=== PATIENT | female | born 1995 | race Caucasian/White ===

== ENCOUNTER 2021-02-14 14:59 | Outpatient (REF) | payer OTHER, SELFPAY ==
[2021-02-14 16:54] LABS: Binax Internal Control QC Valid; Binax Lot number: 9864; Binax Now Covid-19 Ag Negative (Negative)
== END 2021-02-14 15:00 | disposition home or self-care (01) ==
LOC: HO.LAB 14:59
PROVIDERS: Visit Provider Internal Medicine
DX: Z20.822 Contact with and (suspected) exposure to COVID-19 (principal)
CPT/HCPCS: 36415; C9803

== ENCOUNTER 2021-12-04 03:26 | Inpatient (IN) | payer OTHER, SELFPAY ==
--- NOTE | 2021-12-04 | ECG_ITS ---
Test Reason : clearance Blood Pressure : / mmHG Vent. Rate : 086 BPM Atrial Rate : 086 BPM P-R Int : 142 ms QRS Dur : 082 ms QT Int : 346 ms P-R-T Axes : 020 050 041 degrees QTc Int : 414 ms Normal sinus rhythm Normal ECG No previous ECGs available Referred By: Javon Vicente Electronically Signed By:GALINA SALEEM MD
[2021-12-04 03:42] VITALS: BP 140/102; PULSE 102; RESP 18; TEMP 36.3; O2SAT 98; BMI 22.8
[2021-12-04 04:14] LABS: MANUAL DIFF FLAG NO
[2021-12-04 04:15] LABS: Basophils Absolute Auto 0.1 X10*3/uL (0.0-0.2); Basophils Percent Auto 1.2 % (0-2); Eosinophils Absolute Auto 0.1 X10*3/uL (0.0-0.4); Eosinophils Percent Auto 1.1 % (0-4); Hematocrit 38.7 % (37.0-47.0); Hemoglobin 13.2 g/dl (12.0-16.0); Imm Gran Abs Auto 0.01 X10*3/uL (0.00-0.03); Imm Gran Pct Auto 0.2 % (0.0-0.4); Lymphocytes Absolute Auto 3.7 X10*3/uL (1.2-4.9); Lymphocytes Percent Auto 57.5 % (20-40); Mean Corpuscular HGB Conc 34.1 g/dl (31.0-35.0); Mean Corpuscular Hemoglobin 33.2 pg (27.0-33.0); Mean Corpuscular Volume 97.2 fL (80.0-98.0); Mean Platelet Volume 8.8 fL (9.4-12.3); Monocytes Absolute Auto 0.5 X10*3/uL (0.1-1.2); Monocytes Percent Auto 7.8 % (2-11); Neutrophils Absolute Auto 2.1 x10*3/uL (2.0-8.3); Neutrophils Percent Auto 32.2 % (45-73); Platelet Count 336 X10*3/uL (160-400); Red Blood Count 3.98 X10*6/uL (4.20-5.50); Red Cell Distribution Width 12.2 % (11.0-16.0); White Blood Count 6.5 X10*3/uL (4.8-10.8)
[2021-12-04 04:17] LABS: Appearance Urine Clear; Color Urine Yellow; Glucose Urine UA Negative (Negative); Leukocyte Esterase Urine Negative (Negative); Nitrite Urine Negative (Negative); PH 5.5 (5.0-9.0); Specific Gravity - Urine 1.015 (1.005-1.025); UMIC TRIGGER UA YES; Urine Blood Small (1+) (Negative); Urine Ketones Negative (Negative); Urine Protein Negative (Neg-Trace)
[2021-12-04 04:18] LABS: UPreg QC Valid YES; Urine Pregnancy NEGATIVE (NEGATIVE)
[2021-12-04 04:28] LABS: Bacteria Urine 1+ (None Seen); Hyaline Casts Urine 0-2 /LPF (0-2); RBC Urine 0-2 /HPF (0-2); WBC Urine 0-5 /HPF (0-5)
[2021-12-04 04:33] LABS: Acetaminophen LAB < 1 mcg/mL (<30); Ethanol 342 mg/dL; Salicylate < 5.0 mg/dL (15-30)
[2021-12-04 04:34] LABS: Amphetamine Screen Urine POSITIVE (Not Detect); Barbiturates, Urine Not Detected (Not Detect); Benzodiazepines Screen Urine Not Detected (Not Detect); Cannabinoid Screen Urine Not Detected (Not Detect); Cocaine Screen Urine Not Detected (Not Detect); Fentanyl, urine Not Detected (Not Detect); Opiate Screen Urine Not Detected (Not Detect); Phencyclidine Screen Urine Not Detected (Not Detect)
[2021-12-04 04:36] LABS: COVID-19 Test Negative (Negative)
[2021-12-04 04:40] LABS: Alanine Aminotransferase 67 U/L (0-31); Albumin Level 4.8 g/dL (3.5-5.0); Alkaline Phosphatase 86 U/L (39-117); Anion Gap 20 (12-20); Aspartate Amino Transferase 90 U/L (5-31); Bilirubin Total 0.3 mg/dL (0.0-1.0); Blood Urea Nitrogen 14 mg/dL (9-16); Calcium 9.3 mg/dL (8.4-10.2); Carbon Dioxide 22 mmol/L (22-29); Chloride 105 mmol/L (96-108); Creatinine Clr Calc Pharmacy 94.1; Estimated Glomerular Filt Rate > 60; Glucose Random 104 mg/dL (60-115); Sodium 143 mmol/L (135-145); Total Protein 8.6 g/dL (6.5-8.0)
--- NOTE | 2021-12-04 04:41 | ED.PSYCH ---
HPI - Psych General Chief Complaint: Psychiatric Symptoms Stated Complaint: SI/Seeking detox Time Seen by Provider: 12/04/21 03:48 Source: patient Mode of arrival: ambulatory Limitations: no limitations History of Present Illness HPI Narrative: Patient history of alcohol abuse and depression came to the ER for worsening of depression coping with ETOH having persistent suicidal ideation without any plan patient drinks daily and come from alcoholic family never been to detox Related Data Home Medications Medication Instructions Recorded Confirmed dextroamphetamine-amphetamine ER 1 cap PO QAM attention deficit 12/04/21 12/04/21 30 mg 24hr capsule,extend release hyperactivity disorder norgestimate-ethinyl estradiol 1 tab PO DAILY 12/04/21 12/04/21 0.18 mg/0.215mg/0.25mg-35 mcg(28)tablet (Tri-Sprintec (28)) trazodone 50 mg tablet 1 tab PO BEDTIME 12/04/21 12/04/21 Allergies Allergy/AdvReac Type Severity Reaction Status Date / Time amoxicillin [AMOXICILLIN] Allergy Unknown HIVES Unverified 11/03/19 19:49 Review of Systems Review of Systems: Yes all other systems are reviewed and are negative [facility] Social History Social History Advance Directives: No Advance Directives Information Provided: Yes Physical Exam Vital Signs: Vital Signs: Last Vital Signs Temp 97.4 F 12/04/21 03:42 Pulse 102 H 12/04/21 03:42 Resp 18 12/04/21 03:42 BP 140/102 H 12/04/21 03:42 Pulse Ox 98 12/04/21 03:42 O2 Del Method 12/04/21 03:42 BMI result Body Mass Index 22.8 Appearance: Alert. Oriented X3. No acute distress. etoh+ Eyes: PERRLA, No Nystagmus ENT: Pharynx normal. Oral Mucosa moist Neck: Normal inspection. Neck supple. CVS: Normal heart rate and rhythm. Pulses normal. Respiratory: No respiratory distress. Equal air entry bilateral, no wheezing/rales/rhonchi Abdomen: Soft and nontender. Bowel sounds are present, no mass palpable, no CVA tenderness Skin: Skin warm and dry. Normal skin color. Normal skin turgor. Extremities: No lower extremity edema. No calf tenderness Psych: Intoxicated vague suicidal feeling no auditory or visual hallucination Neuro: Oriented X 3. No motor deficit. No sensory deficit.No cerebellar signs , cranial nerves II-XII intact MDM - Psych Lab Data Result diagrams: 12/04/21 04:08 12/04/21 04:08 Labs: Lab Results 12/04/21 12/04/21 12/04/21 Range/Units 03:53 03:54 03:54 WBC (4.8-10.8) X10*3/uL RBC (4.20-5.50) X10*6/uL Hgb (12.0-16.0) g/dl Hct (37.0-47.0) % MCV (80.0-98.0) fL MCH (27.0-33.0) pg MCHC (31.0-35.0) g/dl RDW (11.0-16.0) % Plt Count (160-400) X10*3/uL MPV (9.4-12.3) fL Immature Gran % (Auto) (0.0-0.4) % Neut % (Auto) (45-73) % Lymph % (Auto) (20-40) % [place] % (Auto) (2-11) % Eos % (Auto) (0-4) % Baso % (Auto) (0-2) % Lymph # (Auto) (1.2-4.9) X10*3/uL [place] # (Auto) (0.1-1.2) X10*3/uL Eos # (Auto) (0.0-0.4) X10*3/uL Baso # (Auto) (0.0-0.2) X10*3/uL Abs Immat Gran (auto) (0.00-0.03) X10*3/uL Absolute Neuts (auto) (2.0-8.3) x10*3/uL Absolute Nucleated RBC (0.0-0.012) X10*3/uL Nucleated RBC % (auto) (0.0-0.2) /100WBC Sodium (135-145) mmol/L Potassium (3.3-5.1) mmol/L Chloride (96-108) mmol/L Carbon Dioxide (22-29) mmol/L Anion Gap (12-20) BUN (9-16) mg/dL Creatinine (0.5-1.4) mg/dL Estim Creat Clear Calc Estimated GFR Random Glucose (60-115) mg/dL Calcium (8.4-10.2) mg/dL Magnesium (1.6-2.6) mg/dL Total Bilirubin (0.0-1.0) mg/dL AST (5-31) U/L ALT (0-31) U/L Alkaline Phosphatase (39-117) U/L Total Protein (6.5-8.0) g/dL Albumin (3.5-5.0) g/dL Urine Color Urine Appearance Urine pH (5.0-9.0) Ur Specific Cecilia (1.005-1.025) Urine Protein (Neg-Trace) mg/dL Urine Glucose (UA) (Negative) mg/dL Urine Ketones (Negative) mg/dL Urine Blood (Negative) Urine Nitrite (Negative) Ur Leukocyte Esterase (Negative) Urine RBC (0-2) /HPF Urine WBC (0-5) /HPF Ur Squamous Epith Cells (0-2) /HPF Urine Bacteria (None Seen) Hyaline Casts (0-2) /LPF Urine Test NEGATIVE (NEGATIVE) Salicylates (15-30) mg/dL Urine Opiates Screen Not Detected (Not Detect) Urine Fentanyl Screen Not Detected (Not Detect) Acetaminophen (<30) mcg/mL Ur Barbiturates Screen Not Detected (Not Detect) Ur Phencyclidine Scrn Not Detected (Not Detect) Ur Amphetamines Screen POSITIVE H (Not Detect) U Benzodiazepines Scrn Not Detected (Not Detect) Urine Cocaine Screen Not Detected (Not Detect) U Marijuana (THC) Screen Not Detected (Not Detect) Ethyl Alcohol mg/dL COVID-19 (DANIEL) Negative (Negative) COVID-19 Clin Com See Note 12/04/21 12/04/21 12/04/21 Range/Units 03:55 04:07 04:08 WBC 6.5 (4.8-10.8) X10*3/uL RBC 3.98 L (4.20-5.50) X10*6/uL Hgb 13.2 (12.0-16.0) g/dl Hct 38.7 (37.0-47.0) % MCV 97.2 (80.0-98.0) fL MCH 33.2 H (27.0-33.0) pg MCHC 34.1 (31.0-35.0) g/dl RDW 12.2 (11.0-16.0) % Plt Count 336 (160-400) X10*3/uL MPV 8.8 L (9.4-12.3) fL Immature Gran % (Auto) 0.2 (0.0-0.4) % Neut % (Auto) 32.2 L (45-73) % Lymph % (Auto) 57.5 H (20-40) % [place] % (Auto) 7.8 (2-11) % Eos % (Auto) 1.1 (0-4) % Baso % (Auto) 1.2 (0-2) % Lymph # (Auto) 3.7 (1.2-4.9) X10*3/uL [place] # (Auto) 0.5 (0.1-1.2) X10*3/uL Eos # (Auto) 0.1 (0.0-0.4) X10*3/uL Baso # (Auto) 0.1 (0.0-0.2) X10*3/uL Abs Immat Gran (auto) 0.01 (0.00-0.03) X10*3/uL Absolute Neuts (auto) 2.1 (2.0-8.3) x10*3/uL Absolute Nucleated RBC 0.000 (0.0-0.012) X10*3/uL Nucleated RBC % (auto) 0.0 (0.0-0.2) /100WBC Sodium (135-145) mmol/L Potassium (3.3-5.1) mmol/L Chloride (96-108) mmol/L Carbon Dioxide (22-29) mmol/L Anion Gap (12-20) BUN (9-16) mg/dL Creatinine (0.5-1.4) mg/dL Estim Creat Clear Calc Estimated GFR Random Glucose (60-115) mg/dL Calcium (8.4-10.2) mg/dL Magnesium (1.6-2.6) mg/dL Total Bilirubin (0.0-1.0) mg/dL AST (5-31) U/L ALT (0-31) U/L Alkaline Phosphatase (39-117) U/L Total Protein (6.5-8.0) g/dL Albumin (3.5-5.0) g/dL Urine Color Yellow Urine Appearance Clear Urine pH 5.5 (5.0-9.0) Ur Specific Cecilia 1.015 (1.005-1.025) Urine Protein Negative (Neg-Trace) mg/dL Urine Glucose (UA) Negative (Negative) mg/dL Urine Ketones Negative (Negative) mg/dL Urine Blood Small (1+) H (Negative) Urine Nitrite Negative (Negative) Ur Leukocyte Esterase Negative (Negative) Urine RBC 0-2 (0-2) /HPF Urine WBC 0-5 (0-5) /HPF Ur Squamous Epith Cells 6-10 (0-2) /HPF Urine Bacteria 1+ (None Seen) Hyaline Casts 0-2 (0-2) /LPF Urine Test (NEGATIVE) Salicylates < 5.0 L (15-30) mg/dL Urine Opiates Screen (Not Detect) Urine Fentanyl Screen (Not Detect) Acetaminophen < 1 (<30) mcg/mL Ur Barbiturates Screen (Not Detect) Ur Phencyclidine Scrn (Not Detect) Ur Amphetamines Screen (Not Detect) U Benzodiazepines Scrn (Not Detect) Urine Cocaine Screen (Not Detect) U Marijuana (THC) Screen (Not Detect) Ethyl Alcohol 342 H* mg/dL COVID-19 (DANIEL) (Negative) COVID-19 Clin Com 12/04/21 Range/Units 04:08 WBC (4.8-10.8) X10*3/uL RBC (4.20-5.50) X10*6/uL Hgb (12.0-16.0) g/dl Hct (37.0-47.0) % MCV (80.0-98.0) fL MCH (27.0-33.0) pg MCHC (31.0-35.0) g/dl RDW (11.0-16.0) % Plt Count (160-400) X10*3/uL MPV (9.4-12.3) fL Immature Gran % (Auto) (0.0-0.4) % Neut % (Auto) (45-73) % Lymph % (Auto) (20-40) % [place] % (Auto) (2-11) % Eos % (Auto) (0-4) % Baso % (Auto) (0-2) % Lymph # (Auto) (1.2-4.9) X10*3/uL [place] # (Auto) (0.1-1.2) X10*3/uL Eos # (Auto) (0.0-0.4) X10*3/uL Baso # (Auto) (0.0-0.2) X10*3/uL Abs Immat Gran (auto) (0.00-0.03) X10*3/uL Absolute Neuts (auto) (2.0-8.3) x10*3/uL Absolute Nucleated RBC (0.0-0.012) X10*3/uL Nucleated RBC % (auto) (0.0-0.2) /100WBC Sodium 143 (135-145) mmol/L Potassium 4.0 (3.3-5.1) mmol/L Chloride 105 (96-108) mmol/L Carbon Dioxide 22 (22-29) mmol/L Anion Gap 20 (12-20) BUN 14 (9-16) mg/dL Creatinine 0.71 (0.5-1.4) mg/dL Estim Creat Clear Calc 94.1 Estimated GFR > 60 Random Glucose 104 (60-115) mg/dL Calcium 9.3 (8.4-10.2) mg/dL Magnesium 2.2 (1.6-2.6) mg/dL Total Bilirubin 0.3 (0.0-1.0) mg/dL AST 90 H (5-31) U/L ALT 67 H (0-31) U/L Alkaline Phosphatase 86 (39-117) U/L Total Protein 8.6 H (6.5-8.0) g/dL Albumin 4.8 (3.5-5.0) g/dL Urine Color Urine Appearance Urine pH (5.0-9.0) Ur Specific Cecilia (1.005-1.025) Urine Protein (Neg-Trace) mg/dL Urine Glucose (UA) (Negative) mg/dL Urine Ketones (Negative) mg/dL Urine Blood (Negative) Urine Nitrite (Negative) Ur Leukocyte Esterase (Negative) Urine RBC (0-2) /HPF Urine WBC (0-5) /HPF Ur Squamous Epith Cells (0-2) /HPF Urine Bacteria (None Seen) Hyaline Casts (0-2) /LPF Urine Test (NEGATIVE) Salicylates (15-30) mg/dL Urine Opiates Screen (Not Detect) Urine Fentanyl Screen (Not Detect) Acetaminophen (<30) mcg/mL Ur Barbiturates Screen (Not Detect) Ur Phencyclidine Scrn (Not Detect) Ur Amphetamines Screen (Not Detect) U Benzodiazepines Scrn (Not Detect) Urine Cocaine Screen (Not Detect) U Marijuana (THC) Screen (Not Detect) Ethyl Alcohol mg/dL COVID-19 (DANIEL) (Negative) COVID-19 Clin Com Discharge Plan Discharge Clinical Impression: Alcohol dependence, Suicidal ideation, Depression Patient Disposition: Still a Patient Prescriptions: No Action trazodone 50 mg tablet 1 tab PO BEDTIME norgestimate-ethinyl estradiol [Tri-Sprintec (28)] 0.18/0.215/0.25 mg-35 mcg (28) tablet 1 tab PO DAILY dextroamphetamine-amphetamine 30 mg capsule,extended release 24hr 1 cap PO QAM
--- NOTE | 2021-12-04 04:49 | PC.NURSE ---
Patient currently in bed appears sleeping, no distress observed/reported at this time, BAL at 0407 was 342, [facility] referral completed/confirmed/patient will be assessed by [facility] after 1400, med rec completed/pending provider's approval, behavior non concerning, will continue to monitor.
[2021-12-04 05:06] LABS: Magnesium 2.2 mg/dL (1.6-2.6)
[2021-12-04] MEDS: Thiamine HCL 100 MG TABLET PO (05:50)
[2021-12-04] MEDS: Folic Acid 1 MG TABLET PO (05:50)
--- NOTE | 2021-12-04 17:01 | MHC.RECOVSUP ---
? Reason for consult Recovery Support o Current location: [facility] o Identified substance use concern: Alcohol - Support ? Intervention: o Community resources provided o Harm reduction discussion ? Plan: o Referral to [facility] o Bed search in progress to o Patient awaiting crisis evaluation o Patient to follow up with [facility] after discharge ? Additional information:Met with Patient and we talked about harm reduction and recovery... Client stated that she may want to start MAT. Recovery resources was given to Patient..
[2021-12-04 17:13] VITALS: BP 153/101; PULSE 93; RESP 16; TEMP 36.3; O2SAT 98
--- NOTE | 2021-12-04 17:32 | MHC.CARE ---
CARE Team sent images of pt's license and her SSN # to Financial counseling.
[2021-12-04 20:36] VITALS: BP 142/92; PULSE 92; RESP 16; TEMP 36.3; O2SAT 97
[2021-12-04] MEDS: LORazepam 1 MG TABLET 2 MG PO (20:38)
--- NOTE | 2021-12-04 20:46 | PHA.MEDREC ---
Pharmacy Consult ? Medication Reconciliation RN has completed the medication reconciliation, pharmacy reviewed.
--- OUTSIDE RECORDS SUMMARY | 2021-12-04 22:12 | XMS_ITS | Continuity of Care Document ---
:1995 Author Organization [facility] Address [address] [place] [address]- Care Team Providers Name Role Phone Adenike APARICIO, Geri Collins Primary Care Physician Encounter [facility] Date(s): 08/31/19 - 09/30/19 [facility] [address] [place] [address]- [facility] Allergies, Adverse Reactions, Alerts Substance Reaction Severity Status amoxicillin Active Immunizations Given and Recorded Vaccine Date Status Refusal Reason influenza virus vaccine, inactivated1 03/09/19 Recorded influenza virus vaccine, inactivated2 02/10/13 Given influenza virus vaccine, inactivated 10/09/08 Recorded tetanus/diphtheria/pertussis, acel(Tdap) 02/21/17 Given Meningococcal Conjugate Vaccine 01/23/12 Recorded Meningococcal Conjugate Vaccine 06/17/07 Recorded influenza virus vaccine, live 01/23/12 Recorded influenza virus vaccine, live 10/10/09 Recorded Human Papillomavirus Vaccine 01/18/08 Recorded Human Papillomavirus Vaccine 08/19/07 Recorded Human Papillomavirus Vaccine 06/17/07 Recorded diphtheria/tetanus/pertussis, acel(DTaP) 11/10/05 Recorde d diphtheria/tetanus/pertussis, acel(DTaP) 07/30/98 Recorde d diphtheria/tetanus/pertussis, acel(DTaP) 10/22/95 Recorde d diphtheria/tetanus/pertussis, acel(DTaP) 04/14/95 Recorde d diphtheria/tetanus/pertussis, acel(DTaP) 06/12/94 Recorde d diphtheria/tetanus/pertussis, acel(DTaP) 04/15/94 Recorde d diphtheria/tetanus/pertussis, acel(DTaP)3 02/07/94 Record ed diphtheria/tetanus/pertussis, acel(DTaP) 02/07/94 Recorde d Measles/Mumps/Rubella Virus Vaccine 07/30/98 Recorded Measles/Mumps/Rubella Virus Vaccine 04/14/95 Recorded Polio Vaccine, Live (oldterm) 07/30/98 Recorded Polio Vaccine, Live (oldterm) 06/12/94 Recorded Polio Vaccine, Live (oldterm) 04/15/94 Recorded Polio Vaccine, Live (oldterm) 02/07/94 Recorded Haemophilus B Conjugate Vac (oldterm) 04/14/95 Recorded Haemophilus B Conjugate Vac (oldterm) 06/12/94 Recorded Haemophilus B Conjugate Vac (oldterm) 04/15/94 Recorded Haemophilus B Conjugate Vac (oldterm) 02/07/94 Recorded hepatitis B pediatric vaccine 09/10/94 Recorded hepatitis B pediatric vaccine 01/13/94 Given hepatitis B pediatric vaccine 93 Recorded 1Result Comment: given in [id number] Comment: [02/10/2013] Dr. [id number] Comment: [11/21/2013 Uncharted] put in error Medications Adderall XR 30 mg oral capsule, extended release 1 capsule = 30 mg, By Mouth, Daily in AM, 0 Refills, Maintenance Start Date: 02/10/13 Status: OrderedTri-Linyah 35 mcg oral tablet 1 tablet, By Mouth, Daily, # 84 tablet, 1 Refills, Soft Stop, 03/22/19 10:18:00 EST, [facility], 1 tablet By Mouth Daily,x84 days, 157.3, cm, 03/09/19 10:13:00 EST, Height Start Date: 03/22/19 Stop Date: 09/06/19 Status: Ordered Problem List Condition Effective Dates Status Health Status Informant ADD (attention deficit Active disorder)(Confirmed) History of varicella(Confirmed) Active Social History Social History Type Response Smoking Status Current every day smoker; To bacco user in household: Yes; Type: Cigarettes; Other: 1 pack per week; entered on: 09/11/17 Sex
--- OUTSIDE RECORDS SUMMARY | 2021-12-04 22:12 | XMS_ITS | Continuity of Care Document ---
:1995 Author Organization [facility] Address [address] [place] [address]- Care Team Providers Name Role Phone Adenike APARICIO, Geri Collins Primary Care Physician Encounter [facility] [place] Date(s): 04/30/20 - 05/07/20 [facility] [address] [place] [address]- Encounter Diagnosis Dysuria (Discharge Diagnosis) - 04/30/20 Attending Physician: Geri Jeong MD Allergies, Adverse Reactions, Alerts Substance Reaction Severity [...] vaccine 93 Recorded 1Result Comment: given in [id number] Comment: [02/10/2013] Dr. [id number] Comment: [11/21/2013 Uncharted] put in error Medications Adderall XR 30 mg oral capsule, extended release 1 capsule = 30 mg, By Mouth, Daily in AM, # 14 capsule, 0 Refills, Maintenance, 10/11/19 10:55:00 EDT, ER Capsule, [facility], 1 capsule By Mouth Daily in AM,x14 days, 157.3, cm, 03/09/19 10:13:00 EST, Height Start Date: 10/11/19 Stop Date: 10/25/19 Status: OrderedTri-Linyah 35 mcg oral tablet 1 tablet, By Mouth, Daily, # 84 tablet, 1 Refills, Soft Stop, 12/26/19 10:52:00 EST, [facility], 1 tablet By Mouth Daily,x84 days, 157.3, cm, 03/09/19 10:13:00 EST, Height Start Date: 12/26/19 Stop Date: 06/11/20 Status: Ordered Problem List Condition Effective Dates Status Health Status Informant ADD (attention deficit Active disorder)(Confirmed) History of varicella(Confirmed) Active Diagnosis Diagnosis Type Effective Dates Health Status Clinical Serv ice Informant Dysuria Discharge 04/30/20 Diagnosis Vital Signs Most recent to oldest [Reference Range]: 1 Height 157.3 cm (04/30/20 8:40 AM) Social History Social History Type Response Smoking Status Current every day smoker; To bacco user in household: Yes; Type: Cigarettes; Other: 1 pack per week; entered on: 09/11/17 Sex
--- OUTSIDE RECORDS SUMMARY | 2021-12-04 22:12 | XMS_ITS | Continuity of Care Document ---
:1995 Author Organization [facility] Address [address] [place] [address]- Care Team Providers Name Role Phone Adenike APARICIO, Geri Collins Primary Care Physician [phone] Encounter [facility] [place] Date(s): 05/15/20 - 06/14/20 [facility] [address] [place], [place] [address] Allergies, Adverse Reactions, Alerts Substance Reaction Severity [...] vaccine 93 Recorded 1Result Comment: given in [id number] Comment: [02/10/2013] Dr. [id number] Comment: [11/21/2013 Uncharted] put in error Medications Adderall XR 30 mg oral capsule, extended release 1 capsule = 30 mg, By Mouth, Daily in AM, # 14 capsule, 0 Refills, Maintenance, 10/11/19 10:55:00 EDT, ER Capsule, [facility], 1 capsule By Mouth Daily in AM,x14 days, 157.3, cm, 03/09/19 10:13:00 EST, Height Start Date: 10/11/19 Stop Date: 10/25/19 Status: OrderedTri-Linyah 35 mcg oral tablet 1 tablet, By Mouth, Daily, # 84 tablet, 1 Refills, Soft Stop, 05/29/20 11:27:00 EDT, [facility], 1 tablet By Mouth Daily,x84 days, 157.3, cm, 04/30/20 8:40:00 EDT, Height Start Date: 05/29/20 Stop Date: 11/13/20 Status: Ordered Problem List Condition Effective Dates Status Health Status Informant ADD (attention deficit Active disorder)(Confirmed) History of varicella(Confirmed) Active Social History Social History Type Response Smoking Status Current every day smoker; To bacco user in household: Yes; Type: Cigarettes; Other: 1 pack per week; entered on: 09/11/17 Sex
--- OUTSIDE RECORDS SUMMARY | 2021-12-04 22:12 | XMS_ITS | Continuity of Care Document ---
:1995 Author Organization [facility] Address [address] [place] [address]- Care Team Providers Name Role Phone Adenike APARICIO, Geri Collins Primary Care Physician Encounter [facility] [place] Date(s): 10/24/20 - 11/23/20 [facility] [address] [place], [place] [address] Allergies, Adverse Reactions, Alerts Substance Reaction Severity [...] vaccine 93 Recorded 1Result Comment: given in [id number] Comment: [02/10/2013] Dr. [id number] Comment: [11/21/2013 Uncharted] put in error Medications Adderall XR 30 mg oral capsule, extended release 1 capsule = 30 mg, By Mouth, Daily in AM, # 14 capsule, 0 Refills, Maintenance, 10/11/19 10:55:00 EDT, ER Capsule, [facility], 1 capsule By Mouth Daily in AM,x14 days, 157.3, cm, 03/09/19 10:13:00 EST, Height Start Date: 10/11/19 Stop Date: 10/25/19 Status: OrderedTri-Linyah 35 mcg oral tablet 1 tablet, By Mouth, Daily, for 84 days, # 84 tablet, 1 Refills, Hard Stop 04/11/21 22:26:00 EST, 10/25/20 22:26:00 EDT, [id number], 157.3, cm, 04/30/20 8:40:00 EDT, Height Start Date: 10/25/20 Stop Date: 04/11/21 Status: OrderedTri-Linyah 35 mcg oral tablet 1 tablet, By Mouth, Daily, # 28 tablet, 0 Refills, Soft Stop, 04/11/21 22:26:00 EST, [facility] #[id number], 1 tablet By Mouth Daily,x28 days, 157.3, cm, 04/30/20 8:40:00 EDT, Height Start Date: 04/11/21 Stop Date: 05/09/21 Status: Ordered Problem List Condition Effective Dates Status Health Status Informant ADD (attention deficit Active disorder)(Confirmed) History of varicella(Confirmed) Active Social History Social History Type Response Smoking Status Current every day smoker; To bacco user in household: Yes; Type: Cigarettes; Other: 1 pack per week; entered on: 09/11/17 Sex
--- OUTSIDE RECORDS SUMMARY | 2021-12-04 22:12 | XMS_ITS | Continuity of Care Document ---
:1995 Author Organization [facility] Address [address] [place] [address]- Care Team Providers Name Role Phone Adenike APARICIO, Geri Collins Primary Care Physician [place] [facility] [place]20 [facility] [address] [place], [place] [address] Allergies, Adverse Reactions, Alerts Substance Reaction Severity [...] vaccine 93 Recorded 1Result Comment: given in [id number] Comment: [02/10/2013] Dr. [id number] Comment: [11/21/2013 Uncharted] put in error Medications Adderall XR 30 mg oral capsule, extended release 1 capsule = 30 mg, By Mouth, Daily in AM, # 14 capsule, 0 Refills, Maintenance, 10/11/19 10:55:00 EDT, ER Capsule, [facility], 1 capsule By Mouth Daily in AM,x14 days, 157.3, cm, 03/09/19 10:13:00 EST, Height Start Date: 10/11/19 Stop Date: 10/25/19 Status: OrderedTri-Linyah 35 mcg oral tablet 1 tablet, By Mouth, Daily, # 84 tablet, 1 Refills, Soft Stop, 11/13/20 11:27:00 EDT, [id number], 1 tablet By Mouth Daily,x84 days, 157.3, cm, 04/30/20 8:40:00 EDT, Height Start Date: 11/13/20 Stop Date: 04/30/21 Status: OrderedTri-Linyah 35 mcg oral tablet 1 tablet, By Mouth, Daily, for 84 days, # 84 tablet, 1 Refills, Hard Stop 11/13/20 11:27:00 EDT, 05/29/20 11:27:00 EDT, [facility], 157.3, cm, 04/30/20 8:40:00 EDT, Height Start [...]
--- OUTSIDE RECORDS SUMMARY | 2021-12-04 22:12 | XMS_ITS | Continuity of Care Document ---
:1995 Author Organization [facility] Address [address] [place] [address]- Care Team Providers Name Role Phone Adenike APARICIO, Geri Collins Primary Care Physician [place] [facility] [place]20 [facility] [address] [place], [place] [address] Allergies, Adverse Reactions, Alerts Substance Reaction Severity [...] vaccine 93 Recorded 1Result Comment: given in [id number] Comment: [02/10/2013] Dr. [id number] Comment: [11/21/2013 Uncharted] put in error Medications Adderall XR 30 mg oral capsule, extended release 1 capsule = 30 mg, By Mouth, Daily in AM, # 14 capsule, 0 Refills, Maintenance, 10/11/19 10:55:00 EDT, ER Capsule, [facility], 1 capsule By Mouth Daily in AM,x14 days, 157.3, cm, 03/09/19 10:13:00 EST, Height Start Date: 10/11/19 Stop Date: 10/25/19 Status: OrderedTri-Linyah 35 mcg oral tablet 1 tablet, By Mouth, Daily, # 84 tablet, 1 Refills, Soft Stop, 05/29/20 11:27:00 EDT, [facility], 1 tablet By Mouth [...]
--- OUTSIDE RECORDS SUMMARY | 2021-12-04 22:12 | XMS_ITS | Continuity of Care Document ---
:1995 Author Organization [facility] Address [address] [place] [address]- Care Team Providers Name Role Phone Adenike APARICIO, Geri Collins Primary Care Physician Encounter [facility] [place] Date(s): 06/26/21 - 07/26/21 [facility] [address] [place] [address]- Attending Physician: Jerry Gutierrez Admitting Physician: Jerry Gutierrez Referring Physician: AdmtrJerry Allergies, Adverse Reactions, Alerts Substance Reaction Severity [...] vaccine 93 Recorded 1Result Comment: given in [id number] Comment: [02/10/2013] Dr. [id number] Comment: [11/21/2013 Uncharted] put in error Medications [...] tablet, By Mouth, Daily, # 28 tablet, 11 Refills, Soft Stop, 01/21/21 18:07:00 EST, [id number], 1 tablet By Mouth Daily,x28 days, 157.3, cm, 04/30/20 8:40:00 EDT, Height Start Date: 01/21/21 Stop Date: 12/23/21 Status: OrderedTri-Sprintec oral tablet See Instructions, TAKE 1 TABLET BY MOUTH DAILY, # 28 tablet, 0 Refills, [facility] #[id number], TAKE 1 TABLET BY MOUTH DAILY, 157.3, cm, 04/30/20 8:40:00 EDT, Height Start Date: 12/31/20 Status: Ordered Problem List Condition Effective Dates Status Health Status Informant ADD (attention deficit Active disorder)(Confirmed) History of varicella(Confirmed) Active Social History Social History Type Response Smoking Status Former smoker, quit more richie n 30 days ago entered on: 06/26/21 Sex
--- OUTSIDE RECORDS SUMMARY | 2021-12-04 22:12 | XMS_ITS | Continuity of Care Document ---
:1995 Author Organization [facility] Address [address] [place] [address]- Care Team Providers Name Role Phone Adenike APARICIO, Geri Collins Primary Care Physician [facility] Date[facility] 03[facility]/19 - 03/19/19 [facility] [address] [place] [address]- [facility] Attending Physician: Jerry Gutierrez Admitting Physician: AdmJerry spence Referring Physician: AdmtrJerry Allergies, Adverse Reactions, Alerts [...] vaccine 93 Recorded 1Result Comment: given in [id number] Comment: [02/10/2013] Dr. MartinezZkgasfe3Glqyfx Comment: [11/21/2013 Uncharted] put in error Medications Adderall XR 30 mg oral capsule, extended release 1 capsule = 30 mg, By Mouth, Daily in AM, 0 Refills, Maintenance Start Date: 02/10/13 Status: OrderedTri-Linyah 35 mcg oral tablet See Instructions, # 84 Unknown, Refills 6 Tot. Refills 6, TAKE 1 TABLET BY MOUTH ONCE DAILY, [facility] Start Date: 11/10/18 Status: Ordered Problem List Condition Effective Dates Status Health Status Informant ADD (attention deficit Active disorder)(Confirmed) History of varicella(Confirmed) Active Social History Social History Type Response Smoking Status Current every day smoker; To bacco user in household: Yes; Type: Cigarettes; Other: 1 pack per week; entered on: 09/11/17 Sex
--- OUTSIDE RECORDS SUMMARY | 2021-12-04 22:12 | XMS_ITS | Continuity of Care Document ---
:1995 Author Organization [facility] Address [address] [place] [address]- Care Team Providers Name Role Phone Adenike APARICIO, Geri Collins Primary Care Physician [phone] Encounter [facility] [place] Date(s): 08/29/20 - 09/28/20 [facility] [address] [place], [place] [address] Allergies, Adverse [...] vaccine 93 Recorded 1Result Comment: given in [id number] Comment: [02/10/2013] Dr. MartinezKfwynqf1Mgapkt Comment: [11/21/2013 Uncharted] put in error Medications Adderall XR 30 mg oral capsule, extended release 1 capsule = 30 mg, By Mouth, Daily in AM, # 14 capsule, 0 Refills, Maintenance, 10/11/19 10:55:00 EDT, ER Capsule, [facility], 1 capsule By Mouth Daily in AM,x14 days, 157.3, cm, 03/09/19 10:13:00 EST, Height Start Date: 10/11/19 Stop Date: 10/25/19 Status: OrderedTri-Linyah 35 mcg oral tablet 1 tablet, By Mouth, Daily, # 84 tablet, 1 Refills, Soft Stop, 11/13/20 11:27:00 EDT, [facility] #[id number], 1 tablet By Mouth Daily,x84 days, 157.3, [...]
--- OUTSIDE RECORDS SUMMARY | 2021-12-04 22:12 | XMS_ITS | Continuity of Care Document ---
:1995 Author Organization [facility] Address [address] [place] [address]- Care Team Providers Name Role Phone Adenike APARICIO, Geri Collins Primary Care Physician [phone] [facility] Date[facility]s): 06/26/21 - 07/03/21 [facility] [address] [place] [address]- Attending Physician: Savanna Charles NP Referring Physician: Geri Jeong MD Allergies, Adverse Reactions, [...] vaccine 93 Recorded 1Result Comment: given in [id number] Comment: [02/10/2013] Dr. MartinezBpialqa7Tgkzyj Comment: [11/21/2013 Uncharted] put in error Medications [...] 11 Refills, Soft Stop, 01/21/21 18:07:00 EST, [facility] #[id number], 1 tablet By Mouth Daily,x28 days, 157.3, cm, 04/30/20 8:40:00 EDT, Height Start Date: 01/21/21 Stop Date: 12/23/21 Status: OrderedTri-Sprintec oral tablet See Instructions, TAKE 1 TABLET BY MOUTH DAILY, # 28 tablet, 0 Refills, [facility] #[id number],28, TAKE 1 TABLET BY MOUTH DAILY, 157.3, cm, 04/30/20 8:40:00 EDT, Height Start Date: 12/31/20 Status: Ordered Problem List Condition Effective Dates Status Health Status Informant ADD (attention deficit Active disorder)(Confirmed) History of varicella(Confirmed) Active Vital Signs Most recent to oldest [Reference Range]: 1 Height 157.3 cm (06/26/21 12:11 PM) Oxygen Saturation [94-100 %] 98 % (06/26/21 12:11 PM) Pulse Rate [55-90 bpm] 94 bpm *H* (06/26/21 12:11 PM) Blood Pressure [90-138/55-84 mm Hg] 134/86 mm Hg (06/26/21 12:11 PM) Respiratory Rate [16-30 br/min] 18 br/min (06/26/21 12:11 PM) Blood pressure sites Arm, left (06/26/21 12:11 PM) Social History Social History Type Response Smoking Status Former smoker, quit more richie n 30 days ago entered on: 06/26/21 Sex
--- OUTSIDE RECORDS SUMMARY | 2021-12-04 22:12 | XMS_ITS | Continuity of Care Document ---
:1995 Author Organization [facility] Address [address], [address] [place] [address]- Care Team Providers Name Role Phone Adenike APARICIO, Geri Collins Primary Care Physician [phone] Encounter 05/21/20 - 05/28/20 [facility] [address], [address] [place] [address]- Attending Physician: Geri Jeong MD Admitting Physician: Geri Jeong MD Referring Physician: Geri Jeong MD Allergies, Adverse [...] vaccine 93 Recorded 1Result Comment: given in [id number] Comment: [02/10/2013] Dr. MartniezSvvszyk3Ogrouv Comment: [11/21/2013 Uncharted] put in error Medications Adderall XR 30 mg oral capsule, extended release 1 capsule = 30 mg, By Mouth, Daily in AM, # 14 capsule, 0 Refills, Maintenance, 10/11/19 10:55:00 EDT, ER Capsule, [facility], 1 capsule By Mouth Daily in AM,x14 days, 157.3, cm, 03/09/19 10:13:00 EST, Height Start Date: 10/11/19 Stop Date: 10/25/19 Status: OrderedTri-Linyah 35 mcg oral tablet 1 tablet, By Mouth, Daily, # 84 tablet, 1 Refills, Soft Stop, 12/26/19 10:52:00 EST, [facility], 1 tablet By [...]
--- OUTSIDE RECORDS SUMMARY | 2021-12-04 22:12 | XMS_ITS | Continuity of Care Document ---
:1995 Author Organization [facility] Address [address] [place] [address]- Care Team Providers Name Role Phone Adenike APARICIO, Geri Collins Primary Care Physician [phone] [facility] Date(s): 12/26/19 - 01/25/20 [facility] [address] [place], [place] [address] Allergies, Adverse Reactions, Alerts Substance [...] vaccine 93 Recorded 1Result Comment: given in [id number] Comment: [02/10/2013] Dr. MartinezYrcqtpa5Pbtnqk Comment: [11/21/2013 Uncharted] put in error Medications Adderall XR 30 mg oral capsule, extended release 1 capsule = 30 mg, By Mouth, Daily in AM, # 14 capsule, 0 Refills, Maintenance, 10/11/19 10:55:00 EDT, ER Capsule, [facility], 1 capsule By Mouth Daily in AM,x14 days, 157.3, cm, 03/09/19 10:13:00 EST, Height Start Date: 10/11/19 Stop Date: 10/25/19 Status: OrderedTri-Linyah 35 mcg oral tablet 1 tablet, By Mouth, Daily, # 84 tablet, 1 Refills, Soft Stop, 12/26/19 10:52:00 EST, [facility] # [facility], 1 tablet By Mouth [...]
--- OUTSIDE RECORDS SUMMARY | 2021-12-04 22:12 | XMS_ITS | Continuity of Care Document ---
:1995 Author Organization [facility] Address [address] [place] [address]- Care Team Providers Name Role Phone Adenike APARICIO, Geri Collins Primary Care Physician Encounter [facility] Date(s): 04/30/20 - 05/30/20 [facility] [address] [place], [place] [address] Attending Physician: Jerry Gutierrez Admitting Physician: AdmtrJerry Referring Physician: Admtr, Ar8 Allergies, Adverse Reactions, Alerts Substance Reaction Severity [...] vaccine 93 Recorded 1Result Comment: given in [id number] Comment: [02/10/2013] Dr. MartinezIhlimxs2Eeejhu Comment: [11/21/2013 Uncharted] put in error Medications Adderall XR 30 mg oral capsule, extended release 1 capsule = 30 mg, By Mouth, Daily in AM, # 14 capsule, 0 Refills, Maintenance, 10/11/19 10:55:00 EDT, ER Capsule, [facility] # [facility], 1 capsule By Mouth Daily in AM,x14 days, 157.3, cm, 03/09/19 10:13:00 EST, Height Start Date: 10/11/19 Stop Date: 10/25/19 Status: OrderedTri-Linyah 35 mcg oral tablet 1 tablet, By Mouth, Daily, # 84 tablet, 1 Refills, Soft Stop, 05/29/20 11:27:00 EDT, [facility], 1 tablet By [...]
--- OUTSIDE RECORDS SUMMARY | 2021-12-04 22:12 | XMS_ITS | Continuity of Care Document ---
:1995 Author Organization [facility] Address [address] [place] [address]- Care Team Providers Name Role Phone Adenike APARICIO, Geri Collins Primary Care Physician [phone] En[place] [facility] Date(s): 04/29/20 - 05/29/20 [facility] [address] [place], [place] [address] Allergies, Adverse Reactions, Alerts [...] vaccine 93 Recorded 1Result Comment: given in [id number] Comment: [02/10/2013] Dr. [id number] Comment: [11/21/2013 Uncharted] put in error Medications Adderall XR 30 mg oral capsule, extended release 1 capsule = 30 mg, By Mouth, Daily in AM, # 14 capsule, 0 Refills, Maintenance, 10/11/19 10:55:00 EDT, ER Capsule, [facility], 1 capsule By Mouth Daily in AM,x14 days, 157.3, cm, 03/09/19 10:13:00 EST, Height Start Date: 10/11/19 Stop Date: 10/25/19 Status: OrderedTri-Linyah 35 mcg oral tablet 1 tablet, By Mouth, Daily, # 84 tablet, 1 Refills, Soft Stop, 05/29/20 11:27:00 EDT, [facility] # [facility], 1 tablet By Mouth [...]
--- OUTSIDE RECORDS SUMMARY | 2021-12-04 22:12 | XMS_ITS | Continuity of Care Document ---
:1995 Author Organization [facility] Address [address] [place] [address]- Care Team Providers Name Role Phone Adenike APARICIO, Geri Collins Primary Care Physician En[facility] Date(s): 05/17/20 - 06/16/20 [facility] [address] [place], [place] [address] Allergies, Adverse Reactions, Alerts Substance Reaction Severity [...] vaccine 93 Recorded 1Result Comment: given in [id number] Comment: [02/10/2013] Dr. MartinezCkjgqsf5Ckdlsd Comment: [11/21/2013 Uncharted] put in error Medications Adderall XR 30 mg oral capsule, extended release 1 capsule = 30 mg, By Mouth, Daily in AM, # 14 capsule, 0 Refills, Maintenance, 10/11/19 10:55:00 EDT, ER Capsule, [facility], 1 capsule By Mouth Daily in AM,x14 days, 157.3, cm, 03/09/19 10:13:00 EST, Height Start Date: 10/11/19 Stop Date: 10/25/19 Status: OrderedTri-Linyah 35 mcg oral tablet 1 tablet, By Mouth, Daily, # 84 tablet, 1 Refills, Soft Stop, 05/29/20 11:27:00 EDT, [facility], 1 tablet By Mouth [...]
--- OUTSIDE RECORDS SUMMARY | 2021-12-04 22:12 | XMS_ITS | Continuity of Care Document ---
:1995 Author Organization [facility] Address [address] [place] [address]- Care Team Providers Name Role Phone Adenike APARICIO, Geri Collins Primary Care Physician En[facility] [place] Date(s): 05/16/20 - 06/15/20 [facility] [address] [place], [place] [address] Allergies, Adverse Reactions, Alerts Substance Reaction Severity [...] vaccine 93 Recorded 1Result Comment: given in [id number] Comment: [02/10/2013] Dr. MartinezKoutksn3Dcwzra Comment: [11/21/2013 Uncharted] put in error Medications Adderall XR 30 mg oral capsule, extended release 1 capsule = 30 mg, By Mouth, Daily in AM, # 14 capsule, 0 Refills, Maintenance, 10/11/19 10:55:00 EDT, ER Capsule, [facility], 1 capsule By Mouth Daily in AM,x14 days, 157.3, cm, 03/09/19 10:13:00 EST, Height Start Date: 10/11/19 Stop Date: 10/25/19 Status: OrderedTri-Linyah 35 mcg oral tablet 1 tablet, By Mouth, Daily, # 84 tablet, 1 Refills, Soft Stop, 05/29/20 11:27:00 EDT, [facility] # [facility], 1 tablet By Mouth [...]
--- OUTSIDE RECORDS SUMMARY | 2021-12-04 22:12 | XMS_ITS | Continuity of Care Document ---
:1995 Author Organization [facility] Address [address] [place] [address]- Care Team Providers Name Role Phone Adenike APARICIO, Geri Collins Primary Care Physician [place] [facility] [place] 05/18/20 - 06/17/20 [facility] [address] [place], [place] [address] Allergies, Adverse Reactions, Alerts Substance Reaction [...] vaccine 93 Recorded 1Result Comment: given in [id number] Comment: [02/10/2013] Dr. MartinezDbprqaq3Xvguap Comment: [11/21/2013 Uncharted] put in error Medications Adderall XR 30 mg oral capsule, extended release 1 capsule = 30 mg, By Mouth, Daily in AM, # 14 capsule, 0 Refills, Maintenance, 10/11/19 10:55:00 EDT, ER Capsule, [facility], 1 capsule By Mouth Daily in AM,x14 days, 157.3, cm, 03/09/19 10:13:00 EST, Height Start Date: 10/11/19 Stop Date: 10/25/19 Status: OrderedTri-Linyah 35 mcg oral tablet 1 tablet, By Mouth, Daily, # 84 tablet, 1 Refills, Soft Stop, 05/29/20 11:27:00 EDT, [facility], 1 tablet By Mouth [...]
--- OUTSIDE RECORDS SUMMARY | 2021-12-04 22:12 | XMS_ITS | Continuity of Care Document ---
:1995 Author Organization [facility] Address [address] [place] [address]- Care Team Providers Name Role Phone Adenike APARICIO, Geri Collins Primary Care Physician [place] [facility] [place] 01/16/21 - 02/15/21 [facility] [address] [place], [place] [address] Allergies, Adverse Reactions, Alerts Substance Reaction Severity [...] vaccine 93 Recorded 1Result Comment: given in [id number] Comment: [02/10/2013] Dr. MartinezRbpbsbx5Dybfmj Comment: [11/21/2013 Uncharted] put in error Medications [...] Stop 04/11/21 22:26:00 EST, 10/25/20 22:26:00 EDT, [facility] #[id number], 157.3, cm, 04/30/20 8:40:00 EDT, Height Start Date: 10/25/20 Stop Date: 04/11/21 Status: OrderedTri-Linyah 35 mcg oral tablet 1 tablet, By Mouth, Daily, # 28 tablet, 11 Refills, Soft Stop, 01/21/21 18:07:00 EST, [id number], 1 tablet By Mouth Daily,x28 days, 157.3, cm, 04/30/20 8:40:00 EDT, Height Start Date: 01/21/21 Stop Date: 12/23/21 Status: OrderedTri-Sprintec oral tablet See Instructions, TAKE 1 TABLET BY MOUTH DAILY, # 28 tablet, 0 Refills, [id number],28, TAKE 1 TABLET BY MOUTH DAILY, 157.3, [...]
--- OUTSIDE RECORDS SUMMARY | 2021-12-04 22:12 | XMS_ITS | Continuity of Care Document ---
:1995 Author Organization [facility] Address [address] [place] [address]- Care Team Providers Name Role Phone Adenike APARICIO, Geri Collins Primary Care Physician En[place] [facility] [place] Date(s): 10/26/20 - 11/25/20 [facility] [address] [place], [place] [address] Allergies, Adverse Reactions, Alerts Substance [...] vaccine 93 Recorded 1Result Comment: given in [id number] Comment: [02/10/2013] Dr. MartinezZolkugy5Josout Comment: [11/21/2013 Uncharted] put in error Medications [...] Stop 04/11/21 22:26:00 EST, 10/25/20 22:26:00 EDT, [facility] #[id number], 157.3, cm, 04/30/20 8:40:00 EDT, Height Start Date: 10/25/20 Stop Date: 04/11/21 Status: OrderedTri-Linyah 35 mcg oral tablet 1 tablet, By Mouth, Daily, # 28 tablet, 0 Refills, Soft Stop, 04/11/21 22:26:00 EST, [facility] #[id number], 1 tablet By Mouth Daily,x28 days, 157.3, [...]
--- OUTSIDE RECORDS SUMMARY | 2021-12-04 22:12 | XMS_ITS | Continuity of Care Document ---
:1995 Author Organization [facility] Address [address] [place] [address]- Care Team Providers Name Role Phone Adenike APARICIO, Geri Collins Primary Care Physician [place] [facility] [place] Date(s): 05/14/20 - 06/13/20 [facility] [address] [place], [place] [address] Allergies, Adverse Reactions, Alerts Substance Reaction [...] vaccine 93 Recorded 1Result Comment: given in [id number] Comment: [02/10/2013] Dr. [id number] Comment: [11/21/2013 Uncharted] put in error Medications Adderall XR 30 mg oral capsule, extended release 1 capsule = 30 mg, By Mouth, Daily in AM, # 14 capsule, 0 Refills, Maintenance, 10/11/19 10:55:00 EDT, ER Capsule, [facility], 1 capsule By Mouth Daily in AM,x14 days, 157.3, cm, 03/09/19 10:13:00 EST, Height Start Date: 10/11/19 Stop Date: 10/25/19 Status: OrderedTri-Linyah 35 mcg oral tablet 1 tablet, By Mouth, Daily, # 84 tablet, 1 Refills, Soft Stop, 05/29/20 11:27:00 EDT, [facility] # [facility], 1 tablet By Mouth [...]
--- OUTSIDE RECORDS SUMMARY | 2021-12-04 22:12 | XMS_ITS | Continuity of Care Document ---
:1995 Author Organization [facility] Address [address] [place] [address]- Care Team Providers Name Role Phone Geri Jeong MD Primary Care Physician [facility] Date(s): 03/09/19 - 03/16/19 [facility] [address] [place] [address]- [facility] Encounter Diagnosis Myofascial muscle pain (Discharge Diagnosis) - 03/09/19 Attending Physician: Geri Jeong MD Allergies, Adverse [...] vaccine 93 Recorded 1Result Comment: given in [id number] Comment: [02/10/2013] Dr. MartinezUqohtly4Kcpizy Comment: [11/21/2013 Uncharted] put in error Medications [...] Active Diagnosis Diagnosis Type Effective Dates Health Clinical Infor mant Status Service Myofascial muscle Discharge 03/09/19 pain Diagnosis Vital Signs Most recent to oldest [Reference Range]: 1 Height 157.3 cm (03/09/19 10:13 AM) Weight 63.1 kg (03/09/19 10:13 AM) Oxygen Saturation [94-100 %] 98 % (03/09/19 10:13 AM) Pulse Rate [55-90 bpm] 89 bpm (03/09/19 10:13 AM) Body Mass Index [18.5-24.99] 25.5 *H* (1/22/20 10:13 AM) Blood Pressure [90-138/55-84 mm Hg] 106/84 mm Hg (03/09/19 10:13 AM) Mode of Delivery (Oxygen) Room air (03/09/19 10:13 AM) Social History Social History Type Response Smoking Status Current every day smoker; To bacco user in household: Yes; Type: Cigarettes; Other: 1 pack per week; entered on: 09/11/17 Sex
--- OUTSIDE RECORDS SUMMARY | 2021-12-04 22:12 | XMS_ITS | Continuity of Care Document ---
:1995 Author Organization [facility] Address [address] [place] [address]- Care Team Providers Name Role Phone Adenike APARICIO, Geri Collins Primary Care Physician [facility] Date(s): 12/26/19 - 01/25/20 [facility] [address] [place], [place] [address] Allergies, Adverse Reactions, Alerts Substance [...] vaccine 93 Recorded 1Result Comment: given in [id number] Comment: [02/10/2013] Dr. MartinezCnosgtw2Llfyvi Comment: [11/21/2013 Uncharted] put in error Medications Adderall XR 30 mg oral capsule, extended release 1 capsule = 30 mg, By Mouth, Daily in AM, # 14 capsule, 0 Refills, Maintenance, 10/11/19 10:55:00 EDT, ER Capsule, [facility], 1 capsule By Mouth Daily in AM,x14 days, 157.3, cm, 03/09/19 10:13:00 EST, Height Start Date: 10/11/19 Stop Date: 10/25/19 Status: OrderedTri-Linyah 35 mcg oral tablet 1 tablet, By Mouth, Daily, # 84 tablet, 1 Refills, Soft Stop, 12/26/19 10:52:00 EST, [facility] # [facility], 1 tablet By Mouth [...]
--- OUTSIDE RECORDS SUMMARY | 2021-12-04 22:12 | XMS_ITS | Continuity of Care Document ---
:1995 Author Organization [facility] Address [address] [place] [address]- Care Team Providers Name Role Phone Adenike APARICIO, Geri Collins Primary Care Physician [facility] Date(s): 10/07/19 - 11/06/19 [facility] [address] [place] [address]- [facility] Allergies, Adverse Reactions, Alerts Substance Reaction Severity [...] vaccine 93 Recorded 1Result Comment: given in [id number] Comment: [02/10/2013] Dr. MartinezZoxjmwp8Svogfs Comment: [11/21/2013 Uncharted] put in error Medications Adderall XR 30 mg oral capsule, extended release 1 capsule = 30 mg, By Mouth, Daily in AM, # 14 capsule, 0 Refills, Maintenance, 10/11/19 10:55:00 EDT, ER Capsule, [facility], 1 capsule By Mouth Daily in AM,x14 days, 157.3, cm, 03/09/19 10:13:00 EST, Height Start Date: 10/11/19 Stop Date: 10/25/19 Status: OrderedTri-Linyah 35 mcg oral tablet 1 tablet, By Mouth, Daily, # 84 tablet, 1 Refills, Soft Stop, 03/22/19 10:18:00 EST, [facility], 1 tablet By Mouth [...]
--- OUTSIDE RECORDS SUMMARY | 2021-12-04 22:12 | XMS_ITS | Continuity of Care Document ---
:1995 Author Organization [facility] Address [address] [place] [address]- Care Team Providers Name Role Phone Adenike APARICIO, Geri Collins Primary Care Physician [facility] Date(s): 10/10/19 - 11/09/19 [facility] [address] [place] [address]- [facility] Allergies, Adverse Reactions, Alerts Substance Reaction [...] vaccine 93 Recorded 1Result Comment: given in [id number] Comment: [02/10/2013] Dr. MartinezPpnmfwf6Gvcydp Comment: [11/21/2013 Uncharted] put in error Medications Adderall XR 30 mg oral capsule, extended release 1 capsule = 30 mg, By Mouth, Daily in AM, # 14 capsule, 0 Refills, Maintenance, 10/11/19 10:55:00 EDT, ER Capsule, [facility], 1 capsule By Mouth Daily in AM,x14 days, 157.3, cm, 03/09/19 10:13:00 EST, Height Start Date: 10/11/19 Stop Date: 10/25/19 Status: OrderedTri-Linyah 35 mcg oral tablet 1 tablet, By Mouth, Daily, # 84 tablet, 1 Refills, Soft Stop, 03/22/19 10:18:00 EST, [facility] # [facility], 1 tablet By Mouth [...]
[2021-12-04 22:40] VITALS: BP 152/99; PULSE 95; RESP 18; TEMP 36.3; O2SAT 97
[2021-12-04 23:34] VITALS: BMI 23.8
[2021-12-04] MEDS: traZODone HCL 50 MG TABLET PO (23:45)
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
[2021-12-05 07:00] VITALS: BMI 23.6
[2021-12-05 09:00] VITALS: BP 146/84; PULSE 84; RESP 18; TEMP 36.6; O2SAT 97
[2021-12-05] MEDS: Dextroamphetamine/Amphetamine XR 10 MG CAP.ER.24H 30 MG PO (09:40)
[2021-12-05 09:55] LABS: Alanine Aminotransferase 44 U/L (0-31); Albumin Level 3.9 g/dL (3.5-5.0); Alkaline Phosphatase 74 U/L (39-117); Anion Gap 17 (12-20); Aspartate Amino Transferase 67 U/L (5-31); Bilirubin Total 1.2 mg/dL (0.0-1.0); Blood Urea Nitrogen 12 mg/dL (9-16); Calcium 8.7 mg/dL (8.4-10.2); Carbon Dioxide 24 mmol/L (22-29); Chloride 99 mmol/L (96-108); Cholesterol 160 mg/dL; Creatinine Clr Calc Pharmacy 94.1; Estimated Glomerular Filt Rate > 60; Glucose Fasting 84 mg/dL (60-99); HDL Cholesterol 65 mg/dL; LDL Cholesterol Calculated 54 mg/dl; Potassium 3.7 mmol/L (3.3-5.1); Sodium 136 mmol/L (135-145); Total Protein 6.7 g/dL (6.5-8.0); Triglycerides 208 mg/dL
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
[2021-12-05 17:10] VITALS: BP 153/90; PULSE 87; RESP 16; TEMP 36.7; O2SAT 98
[2021-12-05] MEDS: hydrOXYzine HCL 25 MG TABLET PO ×2 (17:15→22:50)
[2021-12-05 21:00] VITALS: BP 157/103
[2021-12-05 21:18] VITALS: BP 156/105
[2021-12-05] MEDS: cloNIDine HCL 0.1 MG TABLET PO (21:42)
[2021-12-05] MEDS: traZODone HCL 25 MG HALFTAB 75 MG PO (22:50)
[2021-12-05 22:55] VITALS: BP 150/96; PULSE 85
[2021-12-06 08:59] VITALS: BP 113/73; PULSE 92; RESP 16; TEMP 36.6; O2SAT 97
[2021-12-06] MEDS: Dextroamphetamine/Amphetamine XR 10 MG CAP.ER.24H 30 MG PO (09:01)
[2021-12-06] MEDS: cloNIDine HCL 0.1 MG TABLET 0.05 MG PO ×3 (11:51→15:21)
[2021-12-06] MEDS: Sertraline HCL 50 MG TABLET PO (11:51)
[2021-12-06 11:54] VITALS: BP 148/98; PULSE 110
--- NOTE | 2021-12-06 13:43 | P.PNPSI_ITS ---
Subjective Subjective Date of Service: 12/06/21 Reason For Visit: SI Interim History: calm, cooperative, pleasant. discuss Hx provided by her outpt provider, erica sweet, that pt was stable on sertraline for about two years and DCed it bcse she was doing so well. pt agrees to restart sertraline at 50 mg today. reviewed that she has not beeni scoring on CIWA and so protocol would be DCed today. elevated BP reviewed, pt agreeable to schedule clonidine 0.05/0.05/0.1 for now. per staff, highest CIWA 4. BP elevated, however. has clonidine PRNs. c/o poor sleep 2/2 racing thoughts and nightmares. anxious, depressed, withdrawn. per review of MAR/flowsheet, pt received ativan 2 mg on 12/04 only, and no more. Mental Status Exam Mental Status Exam Narrative: calm, cooperative, dressed in [facility]. no PMA/PMR. speech nml rate, amount, loudness, latency. flattened tone. thoughts linear and logical. affect constricted, normo-intense, non-labile. no SI/SIBI/HI/AVH expressed. Diagnostics Vital Signs (24Hr): Vital Signs - 24 hr 12/05/21 17:10 12/05/21 21:00 12/05/21 21:18 Temperature 98.1 F Pulse Rate 87 Respiratory Rate 16 Blood Pressure 153/90 H 157/103 H 156/105 H Pulse Oximetry 98 Oxygen Delivery Method Room Air 12/05/21 22:55 12/06/21 08:59 12/06/21 11:54 Temperature 97.9 F Pulse Rate 85 92 110 H Respiratory Rate 16 Blood Pressure 150/96 H 113/73 148/98 H Pulse Oximetry 97 Oxygen Delivery Method Room Air BMI result Body Mass Index 23.6 Labs Results: 12/04/21 04:08 12/05/21 08:53 Labs: Laboratory Results - last 48 hr 12/05/21 08:53 Sodium 136 Potassium 3.7 Chloride 99 Carbon Dioxide 24 Anion Gap 17 BUN 12 Creatinine 0.71 Estim Creat Clear Calc 94.1 Estimated GFR > 60 Fasting Glucose 84 Calcium 8.7 D Total Bilirubin 1.2 H AST 67 H ALT 44 H Alkaline Phosphatase 74 Total Protein 6.7 D Albumin 3.9 Triglycerides 208 Cholesterol 160 LDL Cholesterol, Calc 54 HDL Cholesterol 65 Medications Medications Current Medications Acetaminophen (Acetaminophen 325 Mg Tablet) 650 mg PO Q6H PRN PRN Reason: Headache/Pain Mild Scale (1-3) Al Hydroxide/Mg Hydroxide (Magnesium Hydrox/Alum Hydrox 30 Ml Oral.Susp) 30 ml PO Q6H PRN PRN Reason: Heartburn/Nausea Amphetamine/Dextroamphetamine (Dextroamphetamine/Amphetamine Xr 10 Mg Cap.Er.24h) 30 mg PO DAILY [facility] Last Admin: 12/06/21 09:01 Dose: 30 mg Clonidine HCl (Clonidine Hcl 0.1 Mg Tablet) 0.05 mg PO BID@0900,1500 [facility]; Protocol Last Admin: 12/06/21 11:51 Dose: 0.05 mg Clonidine HCl (Clonidine Hcl 0.1 Mg Tablet) 0.1 mg PO BEDTIME [facility]; Protocol Hydroxyzine HCl (Hydroxyzine Hcl 25 Mg Tablet) 25 mg PO Q6H PRN PRN Reason: Anxiety Last Admin: 12/05/21 22:50 Dose: 25 mg Magnesium Hydroxide (Milk Of Magnesia 30 Ml Oral.Susp) 30 ml PO DAILY PRN PRN Reason: Constipation Nicotine Polacrilex (Nicotine Polacrilex 2 Mg Gum) 4 mg BUCCAL Q1H PRN PRN Reason: Nicotine Cravings Pt Own (Norgestimate -Ethinyl Estradiol [ Tri-Estarylla (28)] 0.18/0.215/0. 1 tab PO DAILY@1900 [facility] Last Admin: 12/05/21 19:27 Dose: 1 tab Sertraline HCl (Sertraline Hcl 50 Mg Tablet) 50 mg PO DAILY [facility] Last Admin: 12/06/21 11:51 Dose: 50 mg Trazodone HCl (Trazodone Hcl 50 Mg Tablet) 50 mg PO BEDTIME PRN PRN Reason: Insomnia Trazodone HCl (Trazodone Hcl 25 Mg Halftab) 75 mg PO BEDTIME [facility] Last Admin: 12/05/21 22:50 Dose: 75 mg Allergies Allergies Allergy/AdvReac Type Severity Reaction Status Date / Time amoxicillin [AMOXICILLIN] Allergy Unknown Rash Verified 12/04/21 23:34 Assessment & Plan Assessment & Plan (1) Alcohol dependence: Status: Acute Code(s): F10.20 - Alcohol dependence, uncomplicated (2) Depression: Status: Acute Code(s): F32.A - Depression, unspecified (3) Chronic post-traumatic stress disorder (PTSD): Status: Acute Code(s): F43.12 - Post-traumatic stress disorder, chronic Plan 1) alcohol use disorder - ativan per [facility] protocol stopped 12/06 as pt was not scoring for ativan. received only 2 mg ativan on 12/04, and no more. no need for taper. considering naltrexone. will trend LFTs later in stay and start if they are at or near WNL and pt still wishes trial of naltrexone. 2) depression/PTSD - pt states she drinks bcse she is depressed, not the other way around. discussed SSRIs and wellbutrin, interested in SSRIs. call placed to prescriber Erica Sweet for medication Hx. trazodone 50 QHS increased to 75 QHS 12/05 to help with insomnia. per outpt prescriber, pt did well on zoloft. zoloft 50 restarted 12/06. 3) HTN - pt believes likely related to alcohol use. if 2/2 EtOH, should normalize within a month. started clonidine 0.05/0.05/0.1 on 12/06. this is al so intended to address insomnia and nightmares. 4) dispo - pending stabilization. I spent ___25___ minutes with the patient and/or on the patient floor today, greater than?50% of which was spent counseling/coordinating care. Reason for contiued inpatient stay Substantial Risk for: harm to self, inability to function and rapid decompensation
[2021-12-06 15:07] VITALS: BP 155/101; PULSE 87
[2021-12-06 15:58] VITALS: BP 141/93; PULSE 89
[2021-12-06 22:00] VITALS: BP 150/88; PULSE 86; RESP 16; TEMP 36.4; O2SAT 98
[2021-12-06] MEDS: traZODone HCL 25 MG HALFTAB 75 MG PO (22:05)
[2021-12-06] MEDS: cloNIDine HCL 0.1 MG TABLET PO (22:05)
--- NOTE | 2021-12-07 09:12 | HO.PSYCHPN ---
Subjective Subjective Date of Service: 12/07/21 Reason For Visit: SI Subjective Notes: Conditional Voluntary Healthcare Proxy: No Guardianship: No Medical Problems Affecting Mental Status: No Interim History: Patient was seen and discussed in rounds today. Records and plans were reviewed. She was taken of the CIWA protocol. Some episodes of elevated blood pressure still. She has been social and interactive. No complaints other than her sleep which continues to be restless. I will increase the trazodone to 100 mg. She continues to complain of some anxiety and depression. No SI. Eating adequately. No other changes were made today Review of Systems Review of Systems Restless sleep Yes all other systems are reviewed and are negative Diagnostics Vital Signs (24Hr): Vital Signs - 24 hr 12/06/21 11:54 12/06/21 15:07 12/06/21 15:58 Temperature Pulse Rate 110 H 87 89 Respiratory Rate Blood Pressure 148/98 H 155/101 H 141/93 H Pulse Oximetry Oxygen Delivery Method 12/06/21 22:00 Temperature 97.6 F Pulse Rate 86 Respiratory Rate 16 Blood Pressure 150/88 H Pulse Oximetry 98 Oxygen Delivery Method Room Air BMI result Body Mass Index 23.6 Labs Results: 12/04/21 04:08 12/05/21 08:53 Labs: Laboratory Results - last 48 hr 12/05/21 08:53 Sodium 136 Potassium 3.7 Chloride 99 Carbon Dioxide 24 Anion Gap 17 BUN 12 Creatinine 0.71 Estim Creat Clear Calc 94.1 Estimated GFR > 60 Fasting Glucose 84 Calcium 8.7 D Total Bilirubin 1.2 H AST 67 H ALT 44 H Alkaline Phosphatase 74 Total Protein 6.7 D Albumin 3.9 Triglycerides 208 Cholesterol 160 LDL Cholesterol, Calc 54 HDL Cholesterol 65 Medications Medications Current Medications Acetaminophen (Acetaminophen 325 Mg Tablet) 650 mg PO Q6H PRN PRN Reason: Headache/Pain Mild Scale (1-3) Al Hydroxide/Mg Hydroxide (Magnesium Hydrox/Alum Hydrox 30 Ml Oral.Susp) 30 ml PO Q6H PRN PRN Reason: Heartburn/Nausea Amphetamine/Dextroamphetamine (Dextroamphetamine/Amphetamine Xr 10 Mg Cap.Er.24h) 30 mg PO DAILY [facility] Last Admin: 12/06/21 09:01 Dose: 30 mg Clonidine HCl (Clonidine Hcl 0.1 Mg Tablet) 0.05 mg PO BID@0900,1500 [facility]; Protocol Last Admin: 12/06/21 15:19 Dose: 0.05 mg Clonidine HCl (Clonidine Hcl 0.1 Mg Tablet) 0.1 mg PO BEDTIME [facility]; Protocol Last Admin: 12/06/21 22:05 Dose: 0.1 mg Clonidine HCl (Clonidine Hcl 0.1 Mg Tablet) 0.1 mg PO Q2H PRN; Protocol PRN Reason: SBP > 140 Hydroxyzine HCl (Hydroxyzine Hcl 25 Mg Tablet) 25 mg PO Q6H PRN PRN Reason: Anxiety Last Admin: 12/05/21 22:50 Dose: 25 mg Magnesium Hydroxide (Milk Of Magnesia 30 Ml Oral.Susp) 30 ml PO DAILY PRN PRN Reason: Constipation Nicotine Polacrilex (Nicotine Polacrilex 2 Mg Gum) 4 mg BUCCAL Q1H PRN PRN Reason: Nicotine Cravings Pt Own (Norgestimate -Ethinyl Estradiol [ Tri-Estarylla (28)] 0.18/0.215/0. 1 tab PO DAILY@1900 [facility] Last Admin: 12/06/21 19:19 Dose: 1 tab Sertraline HCl (Sertraline Hcl 50 Mg Tablet) 50 mg PO DAILY [facility] Last Admin: 12/06/21 11:51 Dose: 50 mg Trazodone HCl (Trazodone Hcl 50 Mg Tablet) 50 mg PO BEDTIME PRN PRN Reason: Insomnia Trazodone HCl (Trazodone Hcl 25 Mg Halftab) 75 mg PO BEDTIME [facility] Last Admin: 12/06/21 22:05 Dose: 75 mg Allergies Allergies Allergy/AdvReac Type Severity Reaction Status Date / Time amoxicillin [AMOXICILLIN] Allergy Unknown Rash Verified 12/04/21 23:34 Assessment & Plan Assessment & Plan (1) Alcohol dependence: Status: Acute Code(s): F10.20 - Alcohol dependence, uncomplicated (2) Depression: Status: Acute Code(s): F32.A - Depression, unspecified (3) Chronic post-traumatic stress disorder (PTSD): Status: Acute Code(s): F43.12 - Post-traumatic stress disorder, chronic Plan 1) alcohol use disorder - ativan per [facility] protocol stopped 12/06 as pt was not scoring for ativan. received only 2 mg ativan on 12/04, and no more. no need for taper. considering naltrexone. will trend LFTs later in stay and start if they are at or near WNL and pt still wishes trial of naltrexone. 2) depression/PTSD - pt states she drinks bcse she is depressed, not the other way around. discussed SSRIs and wellbutrin, interested in SSRIs. call placed to prescriber Eirca Suresh for medication Hx. trazodone 50 QHS increased to 75 QHS 12/05 to help with insomnia. per outpt prescriber, pt did well on zoloft. zoloft 50 restarted 12/06. 3) HTN - pt believes likely related to alcohol use. if 2/2 EtOH, should normalize within a month. started clonidine 0.05/0.05/0.1 on 12/06. this is also intended to address insomnia and nightmares. 4) dispo - pending stabilization. 12/07: Continue current regimen and plans. Increase trazodone to 100 mg I spent minutes with the patient and/or on the patient floor today, greater than?50% of which was spent counseling/coordinating care. Patient educated on: medication risk/benefits Reason for contiued inpatient stay Substantial Risk for: med/psych decompensation
[2021-12-07 09:50] VITALS: BP 150/79; PULSE 88; RESP 17; TEMP 36.3; O2SAT 98
[2021-12-07] MEDS: Dextroamphetamine/Amphetamine XR 10 MG CAP.ER.24H 30 MG PO (09:58)
[2021-12-07] MEDS: cloNIDine HCL 0.1 MG TABLET 0.05 MG PO ×2 (09:59→15:09)
[2021-12-07] MEDS: Sertraline HCL 50 MG TABLET PO (10:00)
[2021-12-07] MEDS: traZODone HCL 100 MG TABLET PO (22:18)
[2021-12-07] MEDS: cloNIDine HCL 0.1 MG TABLET PO (22:19)
[2021-12-07 22:24] VITALS: BP 138/72; PULSE 73; RESP 16; TEMP 36.6; O2SAT 98
[2021-12-08 08:48] VITALS: BP 125/88; PULSE 109; RESP 18; TEMP 36.6; O2SAT 97
[2021-12-08] MEDS: cloNIDine HCL 0.1 MG TABLET 0.05 MG PO ×2 (08:51→14:53)
[2021-12-08] MEDS: Dextroamphetamine/Amphetamine XR 10 MG CAP.ER.24H 30 MG PO (08:51)
[2021-12-08] MEDS: Sertraline HCL 50 MG TABLET PO (08:52)
--- NOTE | 2021-12-08 09:13 | HO.PSYCHPN ---
Subjective Subjective Date of Service: 12/08/21 Reason For Visit: SI Subjective Notes: Conditional Voluntary Healthcare Proxy: No Guardianship: No Medical Problems Affecting Mental Status: No Interim History: Patient was seen and discussed in rounds today. Records and plans were reviewed. She states that with the increase of trazodone she has been having some nausea and vomiting and sleep interruption. We discussed only taking 50 mg of trazodone and the clonidine tonight to see if that was the reason. She has been visible an overall doing better. No other complaints. No depression or anxiety at this time. Medication Compliance: Yes Side effects from medications: Yes (Possible nausea and vomiting to the increase of trazodone) Review of Systems Review of Systems Restless sleep Yes all other systems are reviewed and are negative Mental Status Exam Mental Status Exam Narrative: In today's visit she is alert, oriented and pleasant. Normal speech. Good eye contact. Appropriate and varied affect. No signs of psychosis. No SI. Cognitively intact. Judgment is intact Diagnostics Vital Signs (24Hr): Vital Signs - 24 hr 12/07/21 09:50 12/07/21 22:24 12/08/21 08:48 Temperature 97.4 F 97.8 F 97.8 F Pulse Rate 88 73 109 H Respiratory Rate 17 16 18 Blood Pressure 150/79 H 138/72 125/88 Pulse Oximetry 98 98 97 Oxygen Delivery Method Room Air Room Air Room Air BMI result Body Mass Index 23.6 Labs Results: 12/04/21 04:08 12/05/21 08:53 Medications Medications Current Medications Acetaminophen (Acetaminophen 325 Mg Tablet) 650 mg PO Q6H PRN PRN Reason: Headache/Pain Mild Scale (1-3) Al Hydroxide/Mg Hydroxide (Magnesium Hydrox/Alum Hydrox 30 Ml Oral.Susp) 30 ml PO Q6H PRN PRN Reason: Heartburn/Nausea Amphetamine/Dextroamphetamine (Dextroamphetamine/Amphetamine Xr 10 Mg Cap.Er.24h) 30 mg PO DAILY [facility] Last Admin: 12/08/21 08:51 Dose: 30 mg Clonidine HCl (Clonidine Hcl 0.1 Mg Tablet) 0.05 mg PO BID@0900,1500 [facility]; Protocol Last Admin: 12/08/21 08:51 Dose: 0.05 mg Clonidine HCl (Clonidine Hcl 0.1 Mg Tablet) 0.1 mg PO BEDTIME [facility]; Protocol Last Admin: 12/07/21 22:19 Dose: 0.1 mg Clonidine HCl (Clonidine Hcl 0.1 Mg Tablet) 0.1 mg PO Q2H PRN; Protocol PRN Reason: SBP > 140 Hydroxyzine HCl (Hydroxyzine Hcl 25 Mg Tablet) 25 mg PO Q6H PRN PRN Reason: Anxiety Last Admin: 12/05/21 22:50 Dose: 25 mg Magnesium Hydroxide (Milk Of Magnesia 30 Ml Oral.Susp) 30 ml PO DAILY PRN PRN Reason: Constipation Nicotine Polacrilex (Nicotine Polacrilex 2 Mg Gum) 4 mg BUCCAL Q1H PRN PRN Reason: Nicotine Cravings Pt Own (Norgestimate -Ethinyl Estradiol [ Tri-Estarylla (28)] 0.18/0.215/0. 1 tab PO DAILY@1900 [facility] Last Admin: 12/07/21 20:07 Dose: 1 tab Sertraline HCl (Sertraline Hcl 50 Mg Tablet) 50 mg PO DAILY [facility] Last Admin: 12/08/21 08:52 Dose: 50 mg Trazodone HCl (Trazodone Hcl 50 Mg Tablet) 50 mg PO BEDTIME PRN PRN Reason: Insomnia Allergies Allergies Allergy/AdvReac Type Severity Reaction Status Date / Time amoxicillin [AMOXICILLIN] Allergy Unknown Rash Verified 12/04/21 23:34 Assessment & Plan Assessment & Plan (1) Alcohol dependence: Status: Acute Code(s): F10.20 - Alcohol dependence, uncomplicated (2) Depression: Status: Acute Code(s): F32.A - Depression, unspecified (3) Chronic post-traumatic stress disorder (PTSD): Status: Acute Code(s): F43.12 - Post-traumatic stress disorder, chronic Plan 1) alcohol use disorder - ativan per [facility] protocol stopped 12/06 as pt was not scoring for ativan. received only 2 mg ativan on 12/04, and no more. no need for taper. considering naltrexone. will trend LFTs later in stay and start if they are at or near WNL and pt still wishes trial of naltrexone. 2) depression/PTSD - pt states she drinks bcse she is depressed, not the other way around. discussed SSRIs and wellbutrin, interested in SSRIs. call placed to prescriber Erica Suresh for medication Hx. trazodone 50 QHS increased to 75 QHS 12/05 to help with insomnia. per outpt prescriber, pt did well on zoloft. zoloft 50 restarted 12/06. 3) HTN - pt believes likely related to alcohol use. if 2/2 EtOH, should normalize within a month. started clonidine 0.05/0.05/0.1 on 12/06. this is also intended to address insomnia and nightmares. 4) dispo - pending stabilization. 12/07: Continue current regimen and plans. Increase trazodone to 100 mg 12/08: Continue current regimen and plans. I discontinued trazodone 100 mg and left 50 mg p.r.n. I spent minutes with the patient and/or on the patient floor today, greater than?50% of which was spent counseling/coordinating care. Patient educated on: medication risk/benefits Reason for contiued inpatient stay Substantial Risk for: med/psych decompensation
[2021-12-08 22:30] VITALS: BP 137/86; PULSE 88; RESP 16; TEMP 36.1; O2SAT 96
[2021-12-08] MEDS: cloNIDine HCL 0.1 MG TABLET PO (22:37)
[2021-12-08] MEDS: traZODone HCL 50 MG TABLET PO (22:37)
[2021-12-09] MEDS: cloNIDine HCL 0.1 MG TABLET 0.05 MG PO ×2 (09:01→14:50)
[2021-12-09] MEDS: Dextroamphetamine/Amphetamine XR 10 MG CAP.ER.24H 30 MG PO (09:01)
[2021-12-09] MEDS: Sertraline HCL 50 MG TABLET PO (09:02)
[2021-12-09 09:59] VITALS: BP 108/72; PULSE 80; RESP 16; TEMP 36.6; O2SAT 98
[2021-12-09 14:50] VITALS: BP 141/85; PULSE 95; RESP 18; O2SAT 96
--- NOTE | 2021-12-09 15:49 | HO.PSYCHPN ---
Subjective Subjective Date of Service: 12/09/21 Reason For Visit: SI Interim History: calm, cooperative. feeling improved. some difficulty staying asleep. increased dosing of trazodone made her nauseated, she believes, so her dose was decreased to 50 mg last night. 50 mg seems to be working well. not interested in medications that might cause weight gain, so remeron and TCAs discussed and set aside. despite lowish BP this morning, opts to increase HS dose of clonidine from 0.1 mg to 0.15 mg. discuss discharge thursday. discuss lack of insurance as an impediment to care. Mental Status Exam Mental Status Exam Narrative: calm, cooperative, dressed in street clothes, well-groomed. no PMA/PMR. speech nml rate, amount, loudness, latency, tone. thoughts linear and logical. affect more flexible, normo-intense, non-labile. no SI/SIBI/HI/AVH expressed. Diagnostics Vital Signs (24Hr): Vital Signs - 24 hr 12/08/21 22:30 12/09/21 09:59 12/09/21 14:50 Temperature 97.0 F 97.8 F Pulse Rate 88 80 95 Respiratory Rate 16 16 18 Blood Pressure 137/86 108/72 141/85 H Pulse Oximetry 96 98 96 Oxygen Delivery Method Room Air Room Air Room Air BMI result Body Mass Index 23.6 Labs Results: 12/04/21 04:08 12/05/21 08:53 Medications Medications Current Medications Acetaminophen (Acetaminophen 325 Mg Tablet) 650 mg PO Q6H PRN PRN Reason: Headache/Pain Mild Scale (1-3) Al Hydroxide/Mg Hydroxide (Magnesium Hydrox/Alum Hydrox 30 Ml Oral.Susp) 30 ml PO Q6H PRN PRN Reason: Heartburn/Nausea Amphetamine/Dextroamphetamine (Dextroamphetamine/Amphetamine Xr 10 Mg Cap.Er.24h) 30 mg PO DAILY SINGH Last Admin: 12/09/21 09:01 Dose: 30 mg Clonidine HCl (Clonidine Hcl 0.1 Mg Tablet) 0.05 mg PO BID@0900,1500 [facility]; Protocol Last Admin: 12/09/21 14:50 Dose: 0.05 mg Clonidine HCl (Clonidine Hcl 0.1 Mg Tablet) 0.1 mg PO Q2H PRN; Protocol PRN Reason: SBP > 140 Clonidine HCl (Clonidine Hcl 0.1 Mg Tablet) 0.15 mg PO BEDTIME SINGH; Protocol Hydroxyzine HCl (Hydroxyzine Hcl 25 Mg Tablet) 25 mg PO Q6H PRN PRN Reason: Anxiety Last Admin: 12/05/21 22:50 Dose: 25 mg Magnesium Hydroxide (Milk Of Magnesia 30 Ml Oral.Susp) 30 ml PO DAILY PRN PRN Reason: Constipation Nicotine Polacrilex (Nicotine Polacrilex 2 Mg Gum) 4 mg BUCCAL Q1H PRN PRN Reason: Nicotine Cravings Pt Own (Norgestimate -Ethinyl Estradiol [ Tri-Estarylla (28)] 0.18/0.215/0. 1 tab PO DAILY@1900 [facility] Last Admin: 12/08/21 20:29 Dose: 1 tab Sertraline HCl (Sertraline Hcl 50 Mg Tablet) 50 mg PO DAILY [facility] Last Admin: 12/09/21 09:02 Dose: 50 mg Trazodone HCl (Trazodone Hcl 50 Mg Tablet) 50 mg PO BEDTIME PRN PRN Reason: Insomnia Last Admin: 12/08/21 22:37 Dose: 50 mg Allergies Allergies Allergy/AdvReac Type Severity Reaction Status Date / Time amoxicillin [AMOXICILLIN] Allergy Unknown Rash Verified 12/04/21 23:34 Assessment & Plan Assessment & Plan (1) Alcohol dependence: Status: Acute Code(s): F10.20 - Alcohol dependence, uncomplicated (2) Depression: Status: Acute Code(s): F32.A - Depression, unspecified (3) Chronic post-traumatic stress disorder (PTSD): Status: Acute Code(s): F43.12 - Post-traumatic stress disorder, chronic Plan 1) alcohol use disorder - ativan per [facility] protocol stopped 12/06 as pt was not scoring for ativan. received only 2 mg ativan on 12/04, and no more. no need for taper. considering naltrexone. will trend LFTs later in stay and start if they are at or near WNL and pt still wishes trial of naltrexone. 2) depression/PTSD - pt states she drinks bcse she is depressed, not the other way around. discussed SSRIs and wellbutrin, interested in SSRIs. call placed to prescriber Erica Suresh for medication Hx. trazodone 50 QHS increased to 75 QHS 12/05 to help with insomnia. per outpt prescriber, pt did well on zoloft. zoloft 50 restarted 12/06. 3) HTN - pt believes likely related to alcohol use. if 2/2 EtOH, should normalize within a month. started clonidine 0.05/0.05/0.1 on 12/06. this is also intended to address insomnia and nightmares. 4) dispo - pending stabilization. 12/07: Continue current regimen and plans. Increase trazodone to 100 mg 12/08: Continue current regimen and plans. I discontinued trazodone 100 mg and left 50 mg p.r.n. 12/09: 50 mg trazodone did not cause nausea but was inadequate for sleep. agrees to increase clonidine at HS to 0.15 mg. planning for thursday discharge. I spent ___25___ minutes with the patient and/or on the patient floor today, greater than?50% of which was spent counseling/coordinating care. Reason for contiued inpatient stay Substantial Risk for: inability to function and rapid decompensation
[2021-12-09 22:23] VITALS: BP 140/94; PULSE 80; RESP 18; TEMP 36.2; O2SAT 97
[2021-12-09] MEDS: traZODone HCL 50 MG TABLET PO (22:31)
[2021-12-09] MEDS: cloNIDine HCL 0.1 MG TABLET 0.15 MG PO (22:32)
[2021-12-10 08:30] VITALS: BP 103/64; PULSE 84; RESP 18; TEMP 36.6; O2SAT 98
[2021-12-10] MEDS: Dextroamphetamine/Amphetamine XR 10 MG CAP.ER.24H 30 MG PO (09:04)
[2021-12-10] MEDS: Sertraline HCL 50 MG TABLET PO (09:04)
[2021-12-10] MEDS: cloNIDine HCL 0.1 MG TABLET 0.05 MG PO ×2 (09:20→14:53)
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
[2021-12-10 14:50] VITALS: BP 128/73; PULSE 89; RESP 18; TEMP 36.6; O2SAT 97
[2021-12-10 22:31] VITALS: BP 145/65; PULSE 77; RESP 16; TEMP 36.3; O2SAT 95
[2021-12-10] MEDS: cloNIDine HCL 0.1 MG TABLET 0.15 MG PO (22:36)
[2021-12-10] MEDS: traZODone HCL 50 MG TABLET PO (22:38)
[2021-12-11 06:00] VITALS: BP 112/67; PULSE 76; RESP 18; TEMP 36.7; O2SAT 98
[2021-12-11] MEDS: Dextroamphetamine/Amphetamine XR 10 MG CAP.ER.24H 30 MG PO (09:36)
[2021-12-11] MEDS: cloNIDine HCL 0.1 MG TABLET 0.05 MG PO (09:37)
[2021-12-11] MEDS: Sertraline HCL 50 MG TABLET PO (09:37)
== END 2021-12-11 10:55 | disposition home or self-care (01) | DRG 881 ==
LOC: HO.ED 06:41 → HO.PADLT16 22:10
PROVIDERS: Admitting Provider Psychiatry & Neurology Psychiatry; Emergency Provider Internal Medicine; Visit Provider Psychiatry & Neurology Psychiatry
DX: F32.A Depression, unspecified (principal); R45.851 Suicidal ideations; F10.220 Alcohol dependence with intoxication, uncomplicated; F43.12 Post-traumatic stress disorder, chronic; F41.9 Anxiety disorder, unspecified; Y90.8 Blood alcohol level of 240 mg/100 ml or more; F17.210 Nicotine dependence, cigarettes, uncomplicated; Z20.822 Contact with and (suspected) exposure to COVID-19; Z71.6 Tobacco abuse counseling; Z23 Encounter for immunization; Z88.0 Allergy status to penicillin; Z79.3 Long term (current) use of hormonal contraceptives; Z79.899 Other long term (current) drug therapy
CPT/HCPCS: 36415; 80053; 80061; 80143; 80179; 80307; 81001; 81025; 82077; 83735; 85025; 87635; 90686; 93005; 99285

== ENCOUNTER 2024-07-29 00:20 | Emergency (ER) | payer OTHER, SELFPAY ==
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
[2024-07-29 00:21] VITALS: BP 142/102; PULSE 126; O2SAT 97
[2024-07-29 00:25] VITALS: BP 153/108; PULSE 96; RESP 18; TEMP 37.5; O2SAT 98; BMI 24.6
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
--- NOTE | 2024-07-29 01:03 | MHC.EDTECH ---
Pt refusing blood draw at this time. RN and Provider aware.
--- NOTE | 2024-07-29 01:08 | PC.NURSE ---
Pt refusing labs, provider notified and aware PD at bedside Plan of care ongoing.
--- NOTE | 2024-07-29 01:14 | PC.NURSE ---
Pt with CT Plan of care ongoing.
--- NOTE | 2024-07-29 01:21 | PC.NURSE ---
Pt declined xray. CT's completed Plan of care ongoing.
--- NOTE | 2024-07-29 01:22 | PC.NURSE ---
Provider notified and aware pt declined xray Plan of care ongoing.
--- NOTE | 2024-07-29 02:01 | PC.NURSE ---
Pt declined to give urine sample Plan of care ongoing.
[2024-07-29 02:08] VITALS: BP 136/93; PULSE 58; RESP 16; O2SAT 99
--- NOTE | 2024-07-29 02:21 | PC.NURSE ---
Pt repeatedly yelling out what the fuck am I waiting for Pt advised and reminded she is waiting on CT results. Pt states I dont give a fuck about that. I want to go. Provider notified and aware pt wants to leave ED. Plan of care ongoing.
--- NOTE | 2024-07-29 05:13 | PC.NURSE ---
this rn assumed care of pt, pt resting in stretcher, no acute distress noted, respirations even and unlabored.
[2024-07-29 05:46] VITALS: BP 100/65; PULSE 87; RESP 16; TEMP 36.8; O2SAT 98
--- NOTE | 2024-07-29 05:52 | PC.NURSE ---
pt upset and swearing at staff, pt states she would like to go home, at bedside, pt ambulatory with steady gait. pt walked to waiting room.
[2024-07-29 05:53] VITALS: BP 100/65; PULSE 87; RESP 16; TEMP 36.8; O2SAT 98
== END 2024-07-29 05:53 | disposition home or self-care (01) ==
PROVIDERS: Emergency Provider Emergency Medicine
DX: T14.8XXA Other injury of unspecified body region, initial encounter (principal); V49.9XXA Car occupant (driver) (passenger) injured in unspecified traffic accident, initial encounter; M54.2 Cervicalgia; M25.511 Pain in right shoulder; Y93.89 Activity, other specified; Y92.410 Unspecified street and highway as the place of occurrence of the external cause; Y99.9 Unspecified external cause status; F10.20 Alcohol dependence, uncomplicated; F17.210 Nicotine dependence, cigarettes, uncomplicated
CPT/HCPCS: 70450; 72125; 99284

== ENCOUNTER → 2024-07-29 00:57 | Outpatient (BNV) | payer OTHER, MEDICAID, SELFPAY | PROVIDERS: Emergency Provider Emergency Medicine; Visit Provider Radiology Neuroradiology | DX: M54.2 Cervicalgia (principal); S00.93XA Contusion of unspecified part of head, initial encounter; V89.2XXA Person injured in unspecified motor-vehicle accident, traffic, initial encounter | CPT/HCPCS: 70450; 72125 ==